=== PATIENT | female | born 1990 | race Hispanic/Latino ===

== ENCOUNTER 2018-07-02 09:34 | Emergency (ER) | payer OTHER ==
[2018-07-02] MEDS ORDERED: Morphine 4 MG/ML VIAL ONE ×2 (10:13→11:02)
--- NOTE | 2018-07-02 12:01 | ULT ---
Bilateral renal ultrasound CLINICAL INDICATION: COMPARISON: FINDINGS: Right kidney: Mild dilatation of right renal pelvis. No focal renal lesion Left kidney: No solid mass, or hydronephrosis. Urinary bladder: Incompletely distended, limiting assessment. Incidentally noted, partially visualized fetus with cardiac activity documented. IMPRESSION: Mild prominence of right renal pelvis
[2018-07-02] MEDS ORDERED: Ondansetron ODT 8 MG TAB ONE (12:44)
== END 2018-07-02 12:35 | disposition home or self-care (01) ==
LOC: ERS 09:34
DX: O99.89 Other specified diseases and conditions complicating pregnancy, childbirth and the puerperium (principal); R10.9 Unspecified abdominal pain; Z3A.19 19 weeks gestation of pregnancy
CPT/HCPCS: 76770; 96361; 96374; 96376; J2270

== ENCOUNTER 2018-11-10 20:27 | Inpatient (IN) | payer OTHER, SELFPAY ==
[2018-11-10] MEDS ORDERED: Promethazine HCl 25 MG/ML VIAL IM PRN (21:05)
[2018-11-10] MEDS ORDERED: NS / Oxytocin 40 units/1000ml 1,000 ML IV PRN (21:05)
[2018-11-10] MEDS ORDERED: Ibuprofen 800 MG TAB PO PRN (21:05)
[2018-11-10] MEDS ORDERED: Zolpidem Tartrate 5 MG TAB PO PRN (21:05)
[2018-11-10] MEDS ORDERED: Ondansetron PF 4 MG/2 ML Vial IVP PRN (21:05)
[2018-11-10] MEDS ORDERED: Lidocaine 1% (PF) 30 ML VIAL SC PRN (21:05)
[2018-11-10] MEDS ORDERED: HYDROcodone/Acetaminophen 5/325 mg Tablet PO PRN ×2 (21:05)
[2018-11-10] MEDS ORDERED: Lactated Ringer's 1,000 ML IV SCH (21:15)
[2018-11-10] MEDS ORDERED: NS w/ Oxytocin 10 units 500 ML IV SCH (21:15)
[2018-11-10] MEDS: Lactated Ringer's 1,000 ML IV SCH (21:37)
[2018-11-10] MEDS ORDERED: Misoprostol 100 MCG TAB ONE (22:12)
[2018-11-10 22:22] VITALS: BMI 42.4
[2018-11-10 22:27] LABS: Hemoglobin 11.8 g/dL (12.0-16.0); Mean Corpuscular HGB CONC 35.8 g/dL (32.0-36.0); Mean Corpuscular Hemoglobin 31.6 pg (27.0-31.0); Mean Corpuscular Volume 88.3 fL (78.0-98.0); Mean Platelet Volume 9.9 fL (7.4-10.4); Platelet Count 188 thou/uL (130-400); Red Blood Cell (RBC) Count 3.72 mill/uL (4.20-5.40); White Blood Cell (WBC) Count 10.2 thou/uL (4.8-10.8)
[2018-11-10] MEDS: Misoprostol 100 MCG TAB VAG SCH (22:34)
[2018-11-10 22:39] LABS: HBSAg Index 0.19 S/CO (0-0.99); Hep B Surf Ag Non-Reactive S/CO (NonReactive); Syphilis Antibody Nonreactive (Nonreactive); Syphilis Antibody Index 0.03 S/CO (<1.00 Non-Reactive)
[2018-11-11] MEDS: Lactated Ringer's 1,000 ML IV SCH ×2 (05:17→08:43)
[2018-11-11] MEDS: Misoprostol 100 MCG TAB VAG SCH ×5 (06:57→16:35)
--- NOTE | 2018-11-11 07:43 | PDOC.LDHP ---
Labor and Delivery H&P Chief complaint: decreased movement HPI: 28yo at 38w3d by LMP here for IOL 2/2 decreased FM and BPP 6/8. Overnight had 1 dose cytotec. Current gestational age (weeks): 38 Due date: 11/22/18 Dating criteria: last menstrual period Grav: 2 Para: 1 Current complications: none Abnormal US findings: Yes (BPP 6/8 -2 for breathing) Current medications: pre- vitamins Previous surgical history: none Allergies/Adverse Reactions: Allergies Allergy/AdvReac Type Severity Reaction Status Date / Time No Known Allergies Allergy Verified 11/10/18 22:11 Social history: none - Physical Exam Vital signs reviewed and normal: yes General: breathing through contractions Heart: RRR Lungs: CTAB Abdomen: gravid Extremeties: no edema FHT: category 1 [place] contractions every: 1-2min - Vaginal Exam cm dilated: 4 Effacement: 75% Station: -2 (arom clear) - OB Labs Blood type: A RH: positive Antibody Screen: negative HIV: negative RPR: negative HEPSAg: negative 1 hour GCT: negative GBS: negative Urine drug screen: negative - Assessment L&D Assessment: medically indicated induction - Plan Plan: admit to L&D, cervical ripening, labor augmentation if indicated, informed consent obtained, anesthesia consult for pain management
[2018-11-11] MEDS ORDERED: Fentanyl 4 mcg/Bup 0.1% Cadd 100 ML ONE (08:16)
[2018-11-11] MEDS ORDERED: Acetaminophen 325 MG TAB PO PRN (08:59)
[2018-11-11] MEDS ORDERED: Naloxone HCl 0.4 mg/ml Vial IVP PRN ×2 (08:59)
[2018-11-11] MEDS ORDERED: Lactated Ringer's 500 ML IV PRN (08:59)
[2018-11-11] MEDS ORDERED: ePHEDrine/0.9% NaCl/PF SYRINGE 50 mg/10 ml SLOW IVP PRN (08:59)
[2018-11-11] MEDS ORDERED: Promethazine HCl 25 MG/ML VIAL IM PRN ×2 (08:59→16:35)
[2018-11-11] MEDS ORDERED: Ondansetron PF 4 MG/2 ML Vial IVP PRN ×2 (08:59→16:35)
[2018-11-11] MEDS ORDERED: diphenhydrAMINE 50 MG/ML VIAL IVP PRN (08:59)
[2018-11-11] MEDS ORDERED: Communication Order-Pharmacy FS SCH (09:00)
[2018-11-11] MEDS ORDERED: Fentanyl 4 mcg/Bupivacaine 0.1% Cassette 100 ML EPIDURAL SCH (09:00)
[2018-11-11] MEDS ORDERED: Lidocaine 2% MPF 10 ML AMP (For Epidural Use) ONE (11:11)
[2018-11-11] MEDS ORDERED: Methylergonovine 0.2 MG/ML VIAL ONE (14:37)
[2018-11-11] MEDS ORDERED: Misoprostol 200 MCG TAB ONE (14:37)
--- NOTE | 2018-11-11 14:45 | PDOC.OPDEL ---
OB Operative/Delivery Note Delivery Dr/Surgeon: Selene Assist: n/a Pre-Delivery Diagnosis: medically indicated induction Procedure/Post Delivery Dx: spontaneous vaginal delivery Weeks gestation: 38 Anesthesia: epidural - Findings A Sex: male - 1 min: 8 - 5 min: 9 - Additional Findings/Plan Placenta delivered: spontaneous Repaired Obstetrical Laceration: none Estimated blood loss: 300cc Post delivery plan: routine recovery
[2018-11-11] MEDS ORDERED: Bisacodyl 10 MG SUPP PR PRN (16:35)
[2018-11-11] MEDS ORDERED: Milk Of Magnesia 30 ML UDCUP PO PRN (16:35)
[2018-11-11] MEDS ORDERED: Benzocaine-Menthol 82.5 ML CAN TOP PRN (16:35)
[2018-11-11] MEDS ORDERED: NS / Oxytocin 40 units/1000ml 1,000 ML IV SCH (16:35)
[2018-11-11] MEDS ORDERED: diphenhydrAMINE 25 MG CAP PO PRN (16:35)
[2018-11-11] MEDS ORDERED: Preparation H Ointment 28 GM TUBE PR PRN (16:35)
[2018-11-11] MEDS ORDERED: hydrALAZINE 20 MG/ML VIAL SLOW IVP PRN (16:35)
[2018-11-11] MEDS ORDERED: HYDROcodone/Acetaminophen 5/325 mg Tablet PO PRN ×2 (16:35)
[2018-11-11] MEDS ORDERED: Lanolin Ointment 7 GM TUBE TOP PRN (16:35)
[2018-11-11] MEDS: Ferrous Sulfate 325 MG TAB PO SCH (18:44)
[2018-11-11] MEDS: Ibuprofen 800 MG TAB PO SCH (21:09)
[2018-11-11] MEDS: Docusate Calcium (SURFAK) 240 MG CAP PO SCH (21:09)
[2018-11-12] MEDS: Ibuprofen 800 MG TAB PO SCH ×2 (06:27→15:21)
--- NOTE | 2018-11-12 06:45 | PDOC.PP ---
Post Progress Note Post Day #: 1 Subjective: Pain is well controlled with medications. Minimal lochia. Ambulating and tolerating diet. , concerned about latch and would like to meet with review consultant. PO intake tolerated: yes Flatus: yes Ambulation: yes Vital Signs (12 hours) Temp Pulse Resp BP 11/12/18 04:11 97.7 F 60 18 98/54 L 11/12/18 00:00 98.7 F 71 18 119/57 L 11/11/18 20:12 98.2 F 79 18 125/68 11/11/18 19:10 98.7 F 82 18 117/58 L Weight Weight 105.233 kg - Physical Examination General: NAD Cardiovascular: no m/r/g, RRR Respiratory: clear to auscultation bilaterally, non-labored breathing Abdominal: + bowel sounds, lochia, appropriately TTP Fundus firm & at: below umbilicus Neurological: no gross focal deficits Psychiatric: A&Ox3, normal affect Result Diagrams: 11/10/18 21:37 Additional Labs: Post Labs Blood Type A POSITIVE 11/10/18 21:37 Hep Bs Antigen Non-Reactive S/CO (NonReactive) 11/10/18 21:37 - Assessment/Plan 28yo delivered TAGA male via at 38w3d by LMP, IOL 2/2 decreased FM and BPP 6/8. Term sIUP, delivered - PPD #1 - Meeting PP milestones - Placed consultation - Likely discharge later today Alessandra Person MD PGY-[address] Lindsey
[2018-11-12 07:49] VITALS: TEMP 98.1
[2018-11-12] MEDS: Ferrous Sulfate 325 MG TAB PO SCH (08:54)
[2018-11-12] MEDS: Docusate Calcium (SURFAK) 240 MG CAP PO SCH (08:54)
[2018-11-12] MEDS ORDERED: Prenatal Vitamin 1 TAB PO SCH (09:00)
[2018-11-12 11:46] VITALS: BP 110/51
[2018-11-12] MEDS ORDERED: Adacel (T-DAP) 0.5 ML SYRINGE IM ONE (16:35)
--- NOTE | 2018-11-12 17:09 | PDOC.EVN ---
Event Note - Event Note Event Note: Pt seen and examined, VSS and no PP issues. Has met all PP milestones. Doing well, pain controlled and ready to go home. Has not had any difficulty with latch per nurse and mother. Will dc to home with instruction to f/u with POB provider. Will rx bowel regimen, PNV and pain control. D/w Dr. Briggs. Pt. ready for home. DC home with precautions. RTC 6 weeks.
== END 2018-11-12 17:45 | disposition home or self-care (01) | DRG 807 ==
LOC: L&D 20:27 → 3SE 11-11 19:54
PROVIDERS: ADMIT Student in an Organized Health Care Education/Training Program; ATTEND Student in an Organized Health Care Education/Training Program
PROC: 3E033VJ Introduction of Other Hormone into Peripheral Vein, Percutaneous Approach (ICD-10-PCS; principal; 2018-11-11)
PROC: 10907ZC Drainage of Amniotic Fluid, Therapeutic from Products of Conception, Via Natural or Artificial Opening (ICD-10-PCS; 2018-11-11)
PROC: 10E0XZZ Delivery of Products of Conception, External Approach (ICD-10-PCS; 2018-11-11)
DX: O76 Abnormality in fetal heart rate and rhythm complicating labor and delivery (principal); Z37.0 Single live birth; Z3A.38 38 weeks gestation of pregnancy
CPT/HCPCS: 36415; 51702; 85027; 86780; 86850; 86900; 86901; 87340; J2001; J2210; J2590